=== PATIENT | male | born 1985 | race Two or more races ===

== ENCOUNTER 2019-06-14 00:06 | Emergency (ER) | payer BC ==
[~2019-06-14] VITALS: Ht 180.3 cm; Wt 70.3 kg
[2019-06-14] MEDS ORDERED: KETOROLAC TROMETHAMINE INJ 30 MG/ML VIAL ONE (00:36)
[2019-06-14 00:39] LABS: BASOPHILS % (AUTO) 0.7 % (0.0-2.0); EOSINOPHILS % (AUTO) 2.7 % (0.0-6.0); HEMATOCRIT 47 % (39-51); LYMPHOCYTES # (AUTO) 2.1 /CMM (0.8-4.8); MEAN CORPUSCULAR HGB CONC 34 g/dl (31.0-36.0); MEAN CORPUSCULAR VOLUME 87 fL (80-96); MONOCYTES # (AUTO) 0.5 /CMM (0.1-1.30); MONOCYTES % (AUTO) 7.1 % (2.0-12.0); NEUTROPHILS # (AUTO) 4.3 /CMM (1.8-8.9); NEUTROPHILS % (AUTO) 60.5 % (43.0-81.0); PLATELET COUNT (AUTO) 195 /CMM (150-450); RED BLOOD CELL COUNT(AUTO) 5.37 MIL/uL (4.5-6.0); WHITE BLOOD COUNT (AUTO) 7.1 K/uL (4.3-11.0)
[2019-06-14] MEDS: KETOROLAC TROMETHAMINE INJ 30 MG/ML VIAL IV ONE (00:40)
--- NOTE | 2019-06-14 00:42 | NUR ---
BIBS C/C INTERMITTENT MIDSTERNAL CP X1WK, -SOB, -NUMBESS, -N/V, HX OF ANXIETY. TO ER BED 4, EKG NORMAL. VSS STABLE. ORDERS RECEIVED AND CARRIED OUT.
[2019-06-14 00:47] LABS: CALCIUM, SERUM 9.8 mg/dL (8.5-10.1); CARBON DIOXIDE 30 mmol/L (21-32); CHLORIDE 105 mmol/L (98-107); CREATININE 1.2 mg/dL (0.6-1.3); GLUCOSE 106 mg/dL (74-106); POTASSIUM 3.5 mmol/L (3.5-5.1); SODIUM SERUM 143 mmol/L (136-145); UREA NITROGEN, BLOOD 17 mg/dL (7-18)
[2019-06-14 02:06] VITALS: BP 125/86
== END 2019-06-14 02:06 | disposition home or self-care (01) ==
LOC: ER 00:06
DX: R07.89 Other chest pain (principal); F41.9 Anxiety disorder, unspecified
CPT/HCPCS: 36415; 80048; 71045; 84484; 85025; 93005; 96374; 99284; J1885

== ENCOUNTER 2020-08-04 06:01 | Emergency (ER) | payer BC ==
[~2020-08-04] VITALS: Ht 180.3 cm; Wt 70.3 kg
--- NOTE | 2020-08-04 06:17 | NUR ---
BIBS FOR C/O R SIDED ABD PAIN AND R FLANK PAIN X 5 DAYS. PT WAS ON VIRTUAL MEETING WITH HIS PCP ON FRIDAY AND STARTED ON FLAGYL AND CIPRO PO AND HAS AN APPOINTMENT FOR CT TODAY. DENIED N/V/D, - DYSURIA OR HEMATURIA. AFEBRILE. URINE SAMPLE OBTAINED. AMBULATORY TO BED 9, PLACED ON A MONITOR.
[2020-08-04] MEDS ORDERED: MORPHINE SULFATE INJ 2 MG/ML DISP.SYRIN ONE (06:34)
[2020-08-04] MEDS ORDERED: ONDANSETRON HCL/PF 4 MG/2 ML VIAL ONE (06:34)
[2020-08-04] MEDS: IV NS 0.9% 1,000 ML BAG IV ONE ×2 (06:44→08:09)
--- NOTE | 2020-08-04 06:48 | NUR ---
PT WOULD LIKE TO HOLD ON TO MORPHINE AND ZOFRAN SINCE THE PAIN IS TOLERABLE. PT WILL LET US KNOW IF HE NEEDS THE PAIN MEDICINE. CALL LIGHT WITHIN REACH. WILL CONT TO MONITOR,
[2020-08-04 07:22] LABS: BASOPHILS % (AUTO) 0.5 % (0.0-2.0); EOSINOPHILS % (AUTO) 1.5 % (0.0-6.0); HEMATOCRIT 44 % (39-51); HEMOGLOBIN 15.4 g/dL (13.5-17.5); LYMPHOCYTES # (AUTO) 1.3 /CMM (0.8-4.8); LYMPHOCYTES % (AUTO) 18.5 % (20.0-44.0); MEAN CORPUSCULAR HGB CONC 35 g/dl (31.0-36.0); MEAN CORPUSCULAR VOLUME 86 fL (80-96); MONOCYTES # (AUTO) 0.7 /CMM (0.1-1.30); MONOCYTES % (AUTO) 9.1 % (2.0-12.0); NEUTROPHILS # (AUTO) 5.1 /CMM (1.8-8.9); NEUTROPHILS % (AUTO) 70.4 % (43.0-81.0); PLATELET COUNT (AUTO) 207 /CMM (150-450); RED BLOOD CELL COUNT(AUTO) 5.06 MIL/uL (4.5-6.0); WHITE BLOOD COUNT (AUTO) 7.2 K/uL (4.3-11.0)
[2020-08-04 07:24] LABS: BILIRUBIN,URINE MODERATE (NEGATIVE); COLOR,URINE AMBER (YELLOW); LEUKOCYTE ESTERASE ,URINE TRACE (NEGATIVE); NITRITE, URINE POSITIVE (NEGATIVE); PROTEIN,URINE TRACE mg/dl (NEGATIVE); UGLUCOSE NEGATIVE (NEGATIVE); UROBILINOGEN,URINE 0.2 EU/dL (0.2)
[2020-08-04] MEDS: MORPHINE SULFATE INJ 2 MG/ML DISP.SYRIN IV ONE (07:27)
[2020-08-04] MEDS: ONDANSETRON HCL/PF 4 MG/2 ML VIAL IVP ONE (07:28)
[2020-08-04 07:44] LABS: ALBUMIN 4.3 g/dL (3.4-5.0); BILIRUBIN,DIRECT 0.3 mg/dL (0.0-0.2); BILIRUBIN,TOTAL 1.3 mg/dL (0.2-1.0); CALCIUM, SERUM 9.2 mg/dL (8.5-10.1); CREATININE 1.2 mg/dL (0.6-1.3); TOTAL PROTEIN, SERUM 7.5 g/dL (6.4-8.2)
[2020-08-04 07:48] LABS: BACTERIA,URINE Rare /HPF (None Seen); CALCIUM OXALATE CRYSTALS,UR Moderate /HPF (None Seen); RBC,URINE NONE SEEN /HPF (0-2); SQUAMOUS EPITHELIAL CELL,UR Few /HPF (None Seen); WBC,URINE 0-2 /HPF (0-3)
[2020-08-04] MEDS ORDERED: CEFTRIAXONE 1GM BAG (ER ONLY) 50 ML IV ONE (08:02)
[2020-08-04] MEDS ORDERED: POTASSIUM CHLORIDE 20 MEQ TAB.PRT.SR PO ONE (08:07)
[2020-08-04] MEDS: POTASSIUM CHLORIDE 20 MEQ TAB.PRT.SR PO ONE (08:09)
[2020-08-04] MEDS: CEFTRIAXONE 1GM BAG (ER ONLY) 1 GM/50 ML PIGGYBACK IV ONE (08:09)
[2020-08-04 09:17] VITALS: BP 122/82
--- NOTE | 2020-08-04 09:17 | NUR ---
IV removed. Catheter intact and site benign. Pressure and 4x4 applied to site. No bleeding noted.Patient discharged to home in stable condition. Written and verbal after care instructions given. Patient verbalizes understanding of instruction.
== END 2020-08-04 09:18 | disposition home or self-care (01) ==
LOC: ER 06:05
DX: E87.6 Hypokalemia (principal); R10.31 Right lower quadrant pain; F41.9 Anxiety disorder, unspecified; Z60.2 Problems related to living alone
CPT/HCPCS: 36415; 74176; 80048; 80076; 81001; 83690; 85025; 87086; 96361; 96365; 96375; 99284; J0696; J2270; J2405; J7030 ×2